=== PATIENT | female | born 1945 ===

== ENCOUNTER 2018-09-20 08:26 | Outpatient (CLI) | payer OTHER ==
[~2018-09-20] VITALS: Ht 152.4 cm; Wt 85.7 kg
[~2018-09-20 08:26] MED LIST: FLONASE16 G1 NS; PREVACID15 MG PO
[2018-09-20] MEDS ORDERED: FLONASE16 GM NASAL (11:50)
== END 2018-09-20 08:45 | disposition home or self-care (01) ==
LOC: OFIC 805 08:26
DX: J31.0 Chronic rhinitis (principal); H69.83 Other specified disorders of Eustachian tube, bilateral

== ENCOUNTER 2018-10-12 10:00 | Outpatient (CLI) | payer OTHER ==
[~2018-10-12 10:00] MED LIST changes: +FLONASE16 GM NASAL
== END 2018-10-12 11:28 | disposition home or self-care (01) ==
LOC: NUCLEAR 10:00
DX: M81.0 Age-related osteoporosis without current pathological fracture (principal); M85.88 Other specified disorders of bone density and structure, other site